=== PATIENT | male | born 1995 | race Caucasian/White ===

== ENCOUNTER 2017-01-23 18:44 | Emergency (ER) | payer OTHER ==
[~2017-01-23] VITALS: Ht 195.6 cm; Wt 137.1 kg
[2017-01-23] MEDS ORDERED: PERCOCET 5/31 TABLET PO (20:21)
[2017-01-23 21:04] VITALS: BP 160/84
== END 2017-01-23 21:05 | disposition home or self-care (01) ==
LOC: EXP 18:44 → EME 18:44 → EXP 21:05
PROC: 2W3RX1Z Immobilization of Left Lower Leg using Splint (ICD-10-PCS; principal; 2017-01-23)
DX: S82.832A Other fracture of upper and lower end of left fibula, initial encounter for closed fracture (principal); W03.XXXA Other fall on same level due to collision with another person, initial encounter; Y93.61 Activity, american tackle football
CPT/HCPCS: 73610; 99281; 99284